=== PATIENT | male | born 1950 | race Caucasian/White ===

== ENCOUNTER → 2018-02-11 10:49 | Outpatient (CLI) | payer MEDICARE, OTHER, SELFPAY ==
--- NOTE | 2018-02-11 11:10 | NM_ITS ---
History and Indications: Coronary artery disease, previous [place], hypertension,, family history, fatigue Procedure: Patient received a 0.4 mg of intravenous Lexiscan, resting heart rate was 60 beats prominent, resting blood pressure 162/92, with Lexiscan maximum heart achieved was 99 bpm which is less than 85% of the maximum predicted heart rate and a blood pressure was 149/77. With Lexiscan complaint of chest pressure. Electrocardiogram: Resting electrocardiogram showed sinus rhythm nonspecific ST-T changes, with Lexiscan there is less than 1.[address] segment depression noted from the baseline EKG. The EKG portion of the Lexiscan Myoview is nondiagnostic Cardiac stress and resting SPECT images: Cardiac stress and resting SPECT images were obtained using technetium 99 Myoview 31.0 mCi at stress and 10.6 mCi at rest. Gated SPECT further analysis of segmental wall motion and calculation of the ejection fraction also done. Cardiac stress and rest images show a partial reversible defect involving the anteroapical, apex, and anteroseptal wall consistent with ischemia and scar in those areas. Computer derived ejection fraction is 42%, there is moderate hypokinesis involving the anteroapical, apex, and anteroseptal wall. Right ventricle is normal size and contractility. Conclusion: 1. The EKG portion of the Lexiscan Myoview is nondiagnostic. 2. Scintigraphic evidence of partial reversible defect involving the anteroapical, apex, and anteroseptal wall consistent with ischemia and scar. Computer derived ejection fraction is 42% with segmental wall motion abnormality described above, right ventricle is normal size and contractility. 3. Abnormal Lexiscan Myoview study.
[2018-02-11 11:49] LABS: Alanine Aminotransferase 33 U/L (12-78); Albumin Level 3.8 gm/dL (3.4-5.0); Alkaline Phosphatase 84 U/L (46-116); Aspartate Amino Transferase 16 U/L (15-37); Bilirubin,Direct 0.1 mg/dL (0.0-0.2); Bilirubin,Indirect 0.3 mg/dL (0.0-0.9); Bilirubin,Total 0.4 mg/dL (0.2-1.0); Chol/HDL Ratio 3.1 (1-3.5); Cholesterol 95 mg/dL (140-200); HDL Cholesterol 31 mg/dL (27-67); LDL Cholesterol 23 mg/dL (0-130); Total Protein,Serum 6.9 gm/dL (6.4-8.2); Triglycerides 203 mg/dL (30-200); VLDL Cholesterol 41 mg/dL (0-40)
--- NOTE | 2018-02-11 12:14 | HMH.ITSHM ---
ATORVASTATIN OMEPRAZOLE LISINOPRIL ASA MECLIZINE BISOPROLOL VITAMINS
== END ==
PROVIDERS: Nurse Practitioner Family; Family Provider Family Medicine; PCP Family Medicine; Visit Provider Internal Medicine
DX: E78.4 Other hyperlipidemia (principal); R06.02 Shortness of breath
CPT/HCPCS: 36415; 78452; 80061; 80076; 93017; A9502; J2785

== ENCOUNTER → 2018-02-20 14:41 | Outpatient (CLI) | payer MEDICARE, OTHER, SELFPAY ==
--- NOTE | 2018-02-20 14:42 | CT_ITS ---
CT head/brain wo con HISTORY: Right-sided weakness ITS.REASON: posterier circulation tia ORDERING PHYSICIAN: Anita Kong MD PATIENT AGE: 67 years COMPARISON: none TECHNIQUE: Axial images obtained without contrast. Brain and bone windows reviewed. All CT scans at the facility use one or more dose reduction, viz: automated exposure control, ma/kV adjustment per patient size (including targeted exams where dose is matched to indication, i.e. head), or iterative reconstruction technique. FINDINGS: No midline shift, mass effect, intracranial hemorrhage, hydrocephalus, or extra-axial fluid collection is evident. There are mild periventricular ischemic gliotic changes. A small area of decreased attenuation is present in the subcortical region in the right frontal lobe measuring 4 mm probably related to partial averaging artifact from the underlying sulcus versus a small area of infarction. The posterior fossa have an unremarkable appearance. No sinus air-fluid level or mastoid effusion. IMPRESSION: No acute finding. Mild periventricular ischemic gliotic change
== END ==
PROVIDERS: Family Provider Family Medicine; PCP Family Medicine; Visit Provider Specialist
DX: G45.8 Other transient cerebral ischemic attacks and related syndromes (principal); G47.33 Obstructive sleep apnea (adult) (pediatric); I10 Essential (primary) hypertension; I63.9 Cerebral infarction, unspecified; R06.83 Snoring
CPT/HCPCS: 70450

== ENCOUNTER 2018-03-04 12:42 | Outpatient (RCR) | payer MEDICARE, OTHER, SELFPAY | END 2018-05-01 10:18 | disposition home or self-care (01) | LOC: PT 12:42 | PROVIDERS: Family Provider Family Medicine; PCP Family Medicine; Visit Provider Internal Medicine | DX: Z95.5 Presence of coronary angioplasty implant and graft (principal) | CPT/HCPCS: 93798 ==

== ENCOUNTER → 2018-04-10 09:56 | Outpatient (CLI) | payer MEDICARE, OTHER, SELFPAY ==
--- NOTE | 2018-04-10 10:00 | CA_ITS ---
PROCEDURE: 2-D M-mode and color Doppler study INDICATIONS FOR THE TEST: Chest pain COPD Heart Murmur Tobacco Smoking Palpitations Fatigue+ Syncope Edema Hypertension+Diabetes Mellitus Rheumatic Fever SOB+SUTTON Obesity Hyperlipidemia+ Family History HD Additional History CVA, PACER, ABN EKG PATIENT INFORMATION HEIGHT: 67 WEIGHT:217 GENDER: Male B/P:157/83 2-D/M-MODE INTERPRETATION: 2-D MEASUREMENTS OBSERVED VALUES IN CMS Right Ventricular Dimension (RVDd) 2.0 Interventricular Septum (Thickness)(IVsd) 1.2 Left Ventricular Internal Dimensions(LVIDd) 5.0 Left Ventricular Posterior Wall (Thickness)(LVPWd) 1.0 Aortic Root 3.2 Aortic Cusp Separation 2.1 Left Atrial Dimensions (LAD) 3.7 2D 1. Left atrium is mildly enlarged, left ventricle is normal size, mild concentric left ventricular hypertrophy, visually estimated ejection fraction approximately 50%, there is abnormal septal motion. Endocardial surface of poorly visualized. 2. Mildly enlarged right atrium and right ventricle, contractility of the right ventricle is normal. There is a pacemaker lead seen in the right atrium and right ventricle. 3. The aortic valve is minimally thickened and fibrosed. 4. The mitral and tricuspid valve leaflets are minimally thickened. 5. The pulmonic valve is poorly visualized. 6. No significant pericardial effusion noted. DOPPLER INTERROGATION: Doppler interrogation of the aortic, mitral and tricuspid valvular presence of mild aortic, mild mitral and tricuspid regurgitation, tricuspid regurgitation jet velocity is inadequate for calculation of the right ventricular systolic pressure, grade 1 diastolic dysfunction seen with tissue Doppler evidence of raised left atrial pressure. CONCLUSION: 1. Biatrial enlargement, normal left ventricular size, mild concentric left ventricular hypertrophy, visually estimated ejection fraction approximately 50%, there is abnormal septal motion, endocardial subsequent poorly visualized, grade 1 diastolic dysfunction seen with tissue Doppler evidence of raised left atrial pressure. 2. Mild aortic, mild mitral and tricuspid regurgitation 3. No significant pericardial effusion noted.
[2018-04-10 11:59] LABS: Anion Gap 11.1 mEq/L (5-15); Blood Urea Nitrogen 15 mg/dL (7-18); Calcium 8.9 mg/dL (8.5-10.1); Carbon Dioxide 31 mmol/L (21.0-32.0); Chloride 104 mmol/L (98-107); Creatinine,Serum 1.03 mg/dL (0.70-1.30); Estimated Glomerular Filt Rate 72 ml/min (>60); GFR (African American) 88 ML/MIN (>60); Glucose 108 mg/dL (74-106); Potassium 5.1 mmoL/L (3.5-5.1); Sodium 141 mmol/L (136-145)
== END ==
PROVIDERS: Internal Medicine Cardiovascular Disease; PCP Family Medicine; Visit Provider Internal Medicine
DX: E78.49 Other hyperlipidemia; I10 Essential (primary) hypertension; I25.10 Atherosclerotic heart disease of native coronary artery without angina pectoris; R06.02 Shortness of breath; R94.31 Abnormal electrocardiogram [ECG] [EKG]
CPT/HCPCS: 36415; 80048; 93306

== ENCOUNTER → 2018-04-24 10:39 | Outpatient (CLI) | payer MEDICARE, OTHER, SELFPAY ==
--- NOTE | 2018-04-24 10:42 | US_ITS ---
US Arterial Ankle Brachial Ind History: ITS.REASON: claudication, bilateral wrist pain, weak pulses on the left ORDERING PHYSICIAN: Ran Murrieta MD PATIENT AGE: 67 years TECHNIQUE: Segmental pressures obtained of both right and left leg. These are compared to brachial blood pressure to yield index at each level sampled including summary RACHEL. The data sheets from the procedure are available in PACS FINDINGS Rest study only performed today No prior studies available for comparison. Blood pressures reported are in millimeters mercury. RIGHT LEG RACHEL = 1.2. RIGHT LEG TBI=0.7 Brachial BP: 141 Thigh BP: 153 Calf BP: 160 Ankle PT: 175 Ankle DP : 161 Digit =99 LEFT LEG RACHEL = 1.2 LEFT LEG TBI= 0.7 Brachial BPD: 136 Thigh BP: 179 Calf BP: 184 Ankle PT:163 Ankle DP: 164 Digit = 100 Pulses and waveforms: Normal IMPRESSION: The ABIs as reported above are within normal limits. Waveforms and pulses are also unremarkable.
== END ==
PROVIDERS: PCP Family Medicine; Visit Provider Internal Medicine Cardiovascular Disease
DX: I70.213 Atherosclerosis of native arteries of extremities with intermittent claudication, bilateral legs (principal)
CPT/HCPCS: 93922

== ENCOUNTER → 2018-05-16 13:57 | Outpatient (CLI) | payer MEDICARE, OTHER, SELFPAY ==
[2018-05-16 16:37] LABS: Blood Urea Nitrogen 14 mg/dL (7-18); Creatinine,Serum 0.96 mg/dL (0.70-1.30); Estimated Glomerular Filt Rate 79 ml/min (>60); GFR (African American) 95 ML/MIN (>60)
== END ==
PROVIDERS: Visit Provider Internal Medicine Cardiovascular Disease
DX: I25.10 Atherosclerotic heart disease of native coronary artery without angina pectoris (principal); R42 Dizziness and giddiness; R94.31 Abnormal electrocardiogram [ECG] [EKG]
CPT/HCPCS: 36415; 82565; 84520

== ENCOUNTER → 2018-05-28 13:13 | Outpatient (CLI) | payer MEDICARE, OTHER, SELFPAY ==
--- NOTE | 2018-05-28 13:21 | CT_ITS ---
CT angio LE BI INDICATION: Left lower extremity claudication ITS.REASON: claudication ORDERING PHYSICIAN: Ran Murrieta MD PATIENT AGE: 67 years COMPARISON: None TECHNIQUE: Axial images are obtained following the intravenous administration of 120 mL of Isovue-370. Contrast. Sagittal and coronal reformatted images are reviewed as well. All CT scans at the facility use one or more dose reduction, viz: automated exposure control, ma/kV adjustment per patient size (including targeted exams where dose is matched to indication, i.e. head), or iterative reconstruction technique. FINDINGS: Angiographic findings: The abdominal aorta has an unremarkable appearance. Small amount of plaque is present at the ostium of the celiac artery without significant stenosis. Small amount of calcific plaque is also present at the ostium of the right renal artery eccentric in nature. The left renal artery and superior mesenteric artery and inferior mesenteric artery have an unremarkable appearance. No iliac stenosis evident. Right lower extremity: No significant stenosis. There is 3 vessel runoff to the right foot Left lower extremity: No stenotic lesions evident. There is three-vessel runoff to the left foot. Nonangiographic findings: Small hiatal hernia. There is diverticulosis of the descending and sigmoid colon with no evidence of diverticulitis. Small left hydrocele noted. Corrugated appearance is noted involving the T12 vertebral body consistent with hemangioma. IMPRESSION: 1. No significant stenotic lesions evident within the aorta, iliac arteries, or lower extremity runoff vessels. 2. Eccentric calcific plaque is present at the ostium of the celiac artery and right renal artery without significant stenosis 3. Incidental note made of a small hiatal hernia and colonic diverticulosis
[2018-05-28 14:20] LABS: Blood Urea Nitrogen 16 mg/dL (7-18); Estimated Glomerular Filt Rate 75 ml/min (>60); GFR (African American) 91 ML/MIN (>60)
== END ==
PROVIDERS: Visit Provider Internal Medicine Cardiovascular Disease
DX: E78.5 Hyperlipidemia, unspecified (principal); I10 Essential (primary) hypertension; I25.10 Atherosclerotic heart disease of native coronary artery without angina pectoris; I73.9 Peripheral vascular disease, unspecified; R20.0 Anesthesia of skin; Z95.0 Presence of cardiac pacemaker
CPT/HCPCS: 36415; 73701; 82565; 84520; Q9967

== ENCOUNTER → 2020-02-11 09:44 | Outpatient (CLI) | payer MEDICARE, BC, SELFPAY ==
--- NOTE | 2020-02-11 | CA_ITS ---
APPROVED REPORT EXAM: Comprehensive 2D, Doppler, and color-flow Echocardiogram Imaging Administrator: Alecia Trotter, RT(R) Ht: 5 ft 7 in Wt: 216lbs BSA: 2.09 BP: 140/72 mmHg Indications: smoker, HTN,SOB, hyperlipidemia, CAD, abn EKG, PAD, pacer, hx CVA 2D Dimensions LVOT 2.07 cm (M/F) 1.5-2.5 M-Mode Dimensions RVDd 2.67 cm (0.9-2.6) LVDd 5.21 cm (3.5-5.7) LVDs 3.73 cm (3.5-5.7) IVSd 1.10 cm (0.6-1.1) PWd 0.89 cm (0.6-1.1) EF (Teich) 54.40% FS 28.40% EDV (Teich) 130.10 mL ESV (Teich) 59.30 mL LV Diastology E/A Ratio 0.55 Mitral Valve MV A Velocity 83.00 (40-130 cm/s) Left Ventricle Left atrium is mildly enlarged, left ventricle is normal size, mild concentric left ventricular hypertrophy visually estimated ejection fraction 45% there is abnormal septal motion, endocardial surfaces are poorly visualized. Grade 1 diastolic dysfunction seen without tissue Doppler evidence of raise left atrial pressure. Right Ventricle Right atrium and right ventricle are normal size and contractility, there is a pacemaker lead seen right atrium and right ventricle. Aortic Valve Aortic valve is thickened and calcified leaflet continue to display good mobility, there is no aortic stenosis, there is mild aortic insufficiency. Mitral Valve Mitral valve is minimally thickened, there is no mitral stenosis, there is mild mitral regurgitation. Tricuspid Valve Tricuspid valve grossly normal, there is mild tricuspid regurgitation, tricuspid regurgitation jet velocity is inadequate for calculation of the right ventricular systolic pressure. Pulmonic Valve Pulmonic valve is poorly visualized. Great Vessels Aortic root is normal size. Pericardium No significant pericardial effusion noted. Conclusion 1. Mildly enlarged left atrium, normal left ventricular size, mild concentric left ventricular hypertrophy, visually estimated ejection fraction 45% with abnormal septal motion. Grade 1 diastolic dysfunction seen without tissue Doppler evidence of raise left atrial pressure. 2. Thickened and calcified aortic valve without aortic stenosis, there is mild aortic insufficiency. 3. Mild mitral and tricuspid regurgitation. 4. No significant pericardial effusion noted. Electronically signed by : Ran Murrieta, 02/12/2020 13:38:06
--- NOTE | 2020-02-11 | CA_ITS ---
APPROVED REPORT Edge Burnisher: Sarai Roberson RVT Laterality: Bilateral Study Quality: Excellent Indications: Carotid stenosis Risk Factors Hypertension: TIA/CVA History Hyperlipidemia PAD Smoking Doppler Spectral Velocity Analysis ECA (R) 64.70/7.60 cm/s ECA (L) 71.90/10.80 cm/s dICA (R) 134.30/42.20 cm/s dICA (L) 75.00/27.10 cm/s Jorge (R) 81.00/31.70 cm/s Jorge (L) 67.90/22.30 cm/s pICA (R) 49.70/17.40 cm/s pICA (L) 63.30/15.40 cm/s dCCA (R) 40.90/9.90 cm/s dCCA (L) 52.20/15.90 cm/s pCCA (R) 58.20/13.70 cm/s pCCA (L) 72.90/12.20 cm/s Vert (R) 28.30/5.10 cm/s Vert (L) 36.40/15.80 cm/s ICA/CCA 3.28 ICA/CCA 1.44 Findings Study suggests no evidence of stenosis of the right internal cartoid artery. Study suggests no evidence of stenosis of the left internal cartoid artery. Antegrade flow seen bilateral vertebral arteries. Conclusion Study suggests no evidence of stenosis of the right internal cartoid artery. Study suggests no evidence of stenosis of the left internal cartoid artery. Antegrade flow seen bilateral vertebral arteries. Electronically signed by : Kojo Holliday MD 02/11/2020 15:57:10
== END ==
PROVIDERS: PCP Family Medicine; Visit Provider Nurse Practitioner Family
DX: R09.89 Other specified symptoms and signs involving the circulatory and respiratory systems (principal); I65.23 Occlusion and stenosis of bilateral carotid arteries; R06.00 Dyspnea, unspecified; R94.31 Abnormal electrocardiogram [ECG] [EKG]; E78.5 Hyperlipidemia, unspecified
CPT/HCPCS: 93306; 93880

== ENCOUNTER 2020-04-25 11:19 | Emergency (ER) | payer MEDICARE, BC, SELFPAY ==
[2020-04-25 11:50] VITALS: BP 175/83; PULSE 62; RESP 14; TEMP 36.8; O2SAT 99; BMI 31.3
--- NOTE | 2020-04-25 12:26 | HMH.EDUTC ---
[facility] [place] Clinical Impression: Exposure to COVID-19 virus Disposition: Home, Self-Care Condition on Discharge: Good Instructions: Preventing the Spread of Coronavirus Discharge Instructions Additional Instructions: follow up with pcp if symptoms develop call pcp if worsen return or be seen in ed self isolate call for test results Referrals: Dane Pascual MD [Primary Care Provider] - Time of Disposition: 12:29 Medical Decision Making - Justice Inquiry Pt receiving controlled substance: No Vital Signs: 04/25/20 11:50 Temperature 98.2 F Temperature Source Oral Pulse Rate [Left Brachial] 62 Respiratory Rate 14 Blood Pressure [Left Arm] 175/83 H Blood Pressure Mean [Left Arm] 113 Blood Pressure Source [Left Arm] Automatic Cuff Blood Pressure Position [Left Arm] Sitting 02 Sat by Pulse Oximetry 99 Oxygen Delivery Method Room Air Orders (Tests/Meds): ORDERS Category Date Time Status Covid-19 Nasal PCR ([facility]) Routine Lab 04/25/20 12:08 Ordered [facility] [place] HPI - General Chief complaint: Urgent [facility] Stated complaint: covid test Time Seen by Provider: 04/25/20 12:26 Mode of Arrival: Ambulatory Source of Information: Patient Limitations: No Limitations Description of Symptoms (Recalled from Triage Doc. by RN): PATIENT REQUESTING COVID TEST D/T EXPOSURE; DENIES SYMPTOMS HEENT Symptoms (Recalled from RN notes): No Resp Symptoms (Recalled from RN notes): No Skin Symptoms (Recalled from RN notes): No MS Symptoms (Recalled from RN notes): No Functional Status (Recalled from RN notes): WNL - History of Present Illness Provider Complaint: 69 yr old female presents for covid testing. pt states no symptoms but was exposed. - Related Data Home Medications Medication Instructions Recorded Confirmed meclizine 25 mg tablet 25 mg PO TID PRN tab 02/04/18 01/19/20 omeprazole 40 mg capsule,delayed 40 mg PO DAILY 02/04/18 01/19/20 release bfrmvjjesyco-xarfxxom-wgjafl tablet 1 tab PO DAILY 02/28/18 01/19/20 Previous Rx's Medication Instructions Recorded aspirin 81 mg tablet,delayed 81 mg PO DAILY #90 tab 04/24/19 release atorvastatin 80 mg tablet 80 mg PO HS #90 tab 04/24/19 bisoprolol fumarate 10 mg tablet 10 mg PO DAILY #90 tab 04/24/19 clopidogrel 75 mg tablet 75 mg PO DAILY #90 tab 04/24/19 hydrochlorothiazide 12.5 mg tablet 12.5 mg PO DAILY #90 tab 04/24/19 losartan 50 mg tablet 50 mg PO DAILY #90 tab 04/24/19 Allergies Allergy/AdvReac Type Severity Reaction Status Date / Time No Known Allergies Allergy Verified 01/19/20 11:48 - Worker's Comp Is this a Worker's Comp case?: No [facility] History - Hepatitis A Screen Drug use history?: No High risk sexual behaviors?: No History of sexually transmitted infection?: No Currently employed?: No Childcare worker?: No Do you have indoor plumbing?: Yes Do you have electricity?: Yes Attestation statement:: This patient has been screened for Hepatitis A risk factors. I have reviewed the patient's past medical history: Yes Medical History: Reports:: Cerebrovascular Accident, Hyperlipidemia, Hypertension, Internal Pacemaker Other Surgeries: Yes: Angiogram (02/21/18 2 stents), Appendectomy, Colonoscopy, Hernia Repair, Pacemaker Amputation: No Fractures: No - Social History Smoking Status: Former smoker Tobacco Type: cigarettes Alcohol Intake: never Alcohol Intake Frequency:: a few times a week Substance Use Type: denies use Occupational Status: other Housing: house Household Members: significant other Family Hx:: Heart Attack, Diabetes, Cancer ROS Obtained: Yes Systems reviewed as appropriate & no additional complaints - Constitutional Constitutional: Reports system reviewed and no additional complaints, except as docu, Denies fever(s) - Eyes Eyes: Reports system reviewed and no additional complaints, except as docu, Denies loss of peripheral vision - ENT Ears, Nose, Mouth, and Throat: Reports system re
[2020-04-25 12:30] VITALS: BP 175/83; PULSE 62; RESP 14; TEMP 36.8; O2SAT 99
--- NOTE | 2020-04-25 17:41 | PC.NURSE ---
patient notified of negative covid test results
== END 2020-04-25 12:34 | disposition home or self-care (01) ==
PROVIDERS: Emergency Provider Nurse Practitioner Family; PCP Family Medicine
DX: Z20.828 Contact with and (suspected) exposure to other viral communicable diseases (principal); E78.5 Hyperlipidemia, unspecified; I10 Essential (primary) hypertension; Z95.0 Presence of cardiac pacemaker; Z87.891 Personal history of nicotine dependence
CPT/HCPCS: G0463; 99201; U0003

== ENCOUNTER → 2020-07-08 10:36 | Outpatient (CLI) | payer MEDICARE, BC, SELFPAY ==
--- NOTE | 2020-07-08 10:47 | XR_ITS ---
PROCEDURE: XR KNEE RT 3V CLINICAL INDICATION: UNILATERAL PRIMARY OSTEOARTHRITIS RT KNEE Knee pain COMPARISON: No exams were available for comparison FINDINGS: There are mild osteoarthritic changes of the medial compartment and patellofemoral joint. No fracture or dislocation. Soft tissue calcification is present along the proximal and medial aspect of the proximal tibia unknown etiology. Other findings:None. IMPRESSION: Mild osteoarthritis of the right knee Dictated by: Kojo Holliday MD 07/08/2020 15:40 Kojo Holliday MD in [place] 07/08/2020 15:40
--- NOTE | 2020-07-08 10:47 | XR_ITS ---
PROCEDURE: XR KNEE LT 3V CLINICAL INDICATION: UNILATERAL PRIMARY OSTEOARTHRITIS LT KNEE COMPARISON: No exams were available for comparison FINDINGS: No fracture or dislocation. No lytic or blastic change. There is normal mineralization. There are mild osteoarthritic changes of medial compartment and patellofemoral joint. Other findings:None. IMPRESSION: Mild osteoarthritis of the left knee Dictated by: Kojo Holliday MD 07/08/2020 15:40 Kojo Holliday MD in [place] 07/08/2020 15:40
== END ==
PROVIDERS: PCP Family Medicine; Visit Provider Family Medicine
DX: M17.12 Unilateral primary osteoarthritis, left knee (principal); M17.11 Unilateral primary osteoarthritis, right knee
CPT/HCPCS: 73562

== ENCOUNTER → 2021-01-24 12:26 | Outpatient (CLI) | payer MEDICARE, BC, SELFPAY ==
--- NOTE | 2021-01-24 12:28 | CA_ITS ---
APPROVED REPORT EXAM: Comprehensive 2D, Doppler, and color-flow Echocardiogram New Car Salesperson: Anu Ott CRT Ht: 5 ft 7 in Wt: 212lbs BSA: 2.07 BP: 146/69 mmHg Indications: Hyperlipidemia, Hypertension/HDD, old mi, cm, smoker 2D Dimensions LVOT 2.00 cm (M/F) 1.5-2.5 LA Volume 33.70 mL LA Volume Index 16.30 mL/m2 (M/F) 16-34 M-Mode Dimensions RVDd 2.97 cm (0.9-2.6) LA Diam 4.02 cm (1.9-4.0) LVDd 5.64 cm (3.5-5.7) Ao Diam 3.93 cm (2.0-3.7) LVDs 4.15 cm (3.5-5.7) IVSd 1.14 cm (0.6-1.1) PWd 0.99 cm (0.6-1.1) EF (Teich) 51.10% FS 26.40% EDV (Teich) 156.20 mL TAPSE 2.64 (<1.7) ESV (Teich) 76.40 mL LV Diastology E Decel Time 347.00 (160-240 msec) E/A Ratio 0.54 MED E' 4.70 (< 7 cm/sec) MED A' 8.60 cm/s E'/MED E' Ratio 7.57 (>14) LAT E' 4.20 (<10 cm/sec) LAT A' 9.00 cm/s E/LAT E' Ratio 8.48 (>14) Aortic Valve AI PHT 593.00 ms AO Peak GR. 5.00 mmHg Mitral Valve MV A Velocity 66.00 (40-130 cm/s) E/A Ratio 0.54 MV Decel. Time 347.00 (160-240 ms) Pulmonary Valve PV Peak Velocity 120.00 (50-150 cm/s) Tricuspid Valve TR P. Velocity 252.00 cm/s RAP Estimate 10.00 mmHg RVSP 35.40 mmHg Left Ventricle Technically difficult study because of the patient factors and poor acoustic windows. Left atrium is mildly enlarged, left ventricle is normal size, mild concentric left ventricular hypertrophy, visually estimated ejection fraction 50%, there is moderate inferior basal wall hypokinesis, grade 1 diastolic dysfunction seen without tissue Doppler evidence of raise left atrial pressure. Right Ventricle Right atrium and right ventricle are normal size and contractility. Aortic Valve Aortic valve is minimally thickened and fibrosed, there is no aortic stenosis, there is mild aortic insufficiency. Mitral Valve Mitral valve leaflets are minimally thickened, there is mild mitral regurgitation. Tricuspid Valve Tricuspid valve grossly normal, there is mild tricuspid regurgitation, calculated right ventricular systolic pressure is 35 mmHg. Pulmonic Valve Pulmonic valve is poorly visualized. Great Vessels Aortic root is normal size. Pericardium No significant pericardial effusion noted. Conclusion 1. Technically difficult study because of the patient factors and poor acoustic windows. Mildly enlarged left atrium, normal left ventricular size, mild concentric left ventricular hypertrophy, visually estimated ejection fraction 50% with segmental wall motion abnormality described above, grade 1 diastolic dysfunction seen without tissue Doppler evidence of raise left atrial pressure. 2. Mild aortic, mild mitral and tricuspid regurgitation, calculated right ventricular systolic pressure is 35 mmHg. 3. No significant pericardial effusion noted. Electronically signed by : Ran Murrieta MD 01/24/2021 21:41:21
== END ==
PROVIDERS: PCP Family Medicine; Visit Provider Nurse Practitioner Family
DX: E78.5 Hyperlipidemia, unspecified (principal); F17.200 Nicotine dependence, unspecified, uncomplicated; I10 Essential (primary) hypertension; I25.10 Atherosclerotic heart disease of native coronary artery without angina pectoris; I63.9 Cerebral infarction, unspecified; I73.9 Peripheral vascular disease, unspecified; R06.00 Dyspnea, unspecified; R94.31 Abnormal electrocardiogram [ECG] [EKG]; Z95.0 Presence of cardiac pacemaker
CPT/HCPCS: 93306

== ENCOUNTER → 2021-07-20 09:11 | Outpatient (CLI) | payer MEDICARE, BC, SELFPAY ==
[2021-07-20 10:43] LABS: Alanine Aminotransferase 36 U/L (12-78); Albumin Level 4.6 g/dl (3.5-5.0); Alkaline Phosphatase 90 U/L (38-126); Aspartate Amino Transferase 40 U/L (17-59); Bilirubin,Direct 0.2 mg/dl (0.0-0.4); Bilirubin,Indirect 0.4 mg/dL (0.0-0.9); Bilirubin,Total 0.6 mg/dl (0.2-1.3); Bilirubin,Unconjugated 0.4 mg/dL (0.0-1.1); Cholesterol 147 mg/dl (140-200); Total Protein,Serum 7.4 g/dl (6.3-8.2)
[2021-07-20 10:44] LABS: Chol/HDL Ratio 5.1 (1-3.5); HDL Cholesterol 29 mg/dl (40-60); Triglycerides 450 mg/dl (30-150)
[2021-07-20 10:55] LABS: Direct LDL Cholesterol 33.57 mg/dL (100-129)
== END ==
PROVIDERS: PCP Family Medicine; Visit Provider Nurse Practitioner Family
DX: E78.2 Mixed hyperlipidemia (principal); F17.200 Nicotine dependence, unspecified, uncomplicated; I10 Essential (primary) hypertension; I25.10 Atherosclerotic heart disease of native coronary artery without angina pectoris; I73.9 Peripheral vascular disease, unspecified; Z95.0 Presence of cardiac pacemaker
CPT/HCPCS: 36415; 80061; 80076

== ENCOUNTER → 2022-11-02 14:12 | Outpatient (CLI) | payer MEDICARE, BC, SELFPAY | PROVIDERS: PCP Family Medicine; Visit Provider Nurse Practitioner | DX: R06.09 Other forms of dyspnea; I42.8 Other cardiomyopathies; I25.10 Atherosclerotic heart disease of native coronary artery without angina pectoris; I10 Essential (primary) hypertension; E78.2 Mixed hyperlipidemia; I73.9 Peripheral vascular disease, unspecified; R94.31 Abnormal electrocardiogram [ECG] [EKG]; Z95.0 Presence of cardiac pacemaker; F17.200 Nicotine dependence, unspecified, uncomplicated | CPT/HCPCS: 93306 ==

== ENCOUNTER 2023-07-19 23:00 | Outpatient (CLI) | payer MEDICARE, SELFPAY ==
[2023-07-19 19:21] LABS: Basophils % 0.4 % (0.1-2.0); Eosinophils # 0.3 K/mm3 (0.0-0.4); Eosinophils % 4.8 % (0.1-12.0); Hematocrit 40.5 % (42.0-52.0); Hemoglobin 13.8 g/dL (14.1-18.0); Lymphocytes # 1.9 K/mm3 (0.7-4.5); Lymphocytes % 36.2 % (10-50); Mean Corpuscular HGB Conc 34.1 g/dL (31.8-35.4); Mean Corpuscular Hemoglobin 31.2 pg (27.0-31.2); Mean Corpuscular Volume 91.5 fl (80-94); Mean Platelet Volume 9.7 fl (7.4-10.4); Monocytes # 0.3 K/mm3 (0.1-1.0); Monocytes % 5.8 % (1.7-9.3); Neutrophils # 2.7 K/mm3 (1.8-7.8); Neutrophils % 52.8 % (37.0-80.0); Platelet Count 200 K/mm3 (142-424); Red Blood Count 4.43 M/mm3 (4.60-6.20); Red Cell Distribution Width 13.6 % (11.5-17.5); White Blood Count 5.2 K/mm3 (4.8-10.8)
[2023-07-19 19:46] LABS: Alanine Aminotransferase 28 U/L (12-78); Albumin Level 4.2 g/dl (3.5-5.0); Albumin/Globulin Ratio 1.4 (1.1-1.8); Alkaline Phosphatase 101 U/L (38-126); Aspartate Amino Transferase 29 U/L (17-59); Bilirubin,Total 0.5 mg/dl (0.2-1.3); Blood Urea Nitrogen 15 mg/dl (9-20); Calcium 9.1 mg/dl (8.4-10.2); Carbon Dioxide 27 mmol/L (22.0-30.0); Chloride 104 mmol/L (98-107); Chol/HDL Ratio 6.2 (1-3.5); Cholesterol 156 mg/dl (140-200); Estimated Glomerular Filt Rate 66 ml/min (>60); GFR (African American) 80 ML/MIN (>60); Glucose 145 mg/dl (74-100); HDL Cholesterol 25 mg/dl (40-60); Sodium 138 mmol/L (136-145); Total Protein,Serum 7.2 g/dl (6.3-8.2)
[2023-07-19 19:50] LABS: Triglycerides 508 mg/dl (30-150)
[2023-07-19 19:56] LABS: Direct LDL Cholesterol 47.46 mg/dL (100-129)
[2023-07-19 20:00] LABS: Hemoglobin A1C 8.2 % (4.0-6.0)
[2023-07-19 20:16] LABS: Prostate Specific Ag Screen 0.5 ng/ml (0.0-4.0); Thyroid Stimulating Hormone 0.75 uIU/mL (0.465-4.68)
== END 2023-07-19 23:59 ==
PROVIDERS: PCP Family Medicine; Visit Provider Family Medicine
DX: E11.9 Type 2 diabetes mellitus without complications (principal); Z12.5 Encounter for screening for malignant neoplasm of prostate; E78.9 Disorder of lipoprotein metabolism, unspecified; R53.83 Other fatigue; I10 Essential (primary) hypertension; Z79.84 Long term (current) use of oral hypoglycemic drugs
CPT/HCPCS: 80053; 80061; 83036; 84443; 85025; G0103

== ENCOUNTER 2024-10-17 09:55 | Outpatient (CLI) | payer MEDICARE, SELFPAY ==
[2024-10-17 18:20] LABS: Basophils % 0.2 % (0.1-2.0); Eosinophils # 0.2 Kmm3 (0.0-0.4); Eosinophils % 3.5 % (0.1-12.0); Hematocrit 38.9 % (42.0-52.0); Hemoglobin 12.9 g/dL (14.1-18.0); Lymphocytes # 1.8 K/mm3 (0.7-4.5); Mean Corpuscular HGB Conc 33.2 g/dL (31.8-35.4); Mean Corpuscular Hemoglobin 30.1 pg (27.0-31.2); Mean Corpuscular Volume 90.9 fl (80-94); Mean Platelet Volume 11.6 fl (7.4-10.4); Monocytes # 0.5 K/mm3 (0.1-1.0); Monocytes % 8.6 % (1.7-9.3); Neutrophils # 3.6 K/mm3 (1.8-7.8); Neutrophils % 58.5 % (37.0-80.0); Nucleated Red Blood Cells # 0 10^3/uL; Nucleated Red Blood Cells % 0 %; Platelet Count 208 K/mm3 (142-424); Red Blood Count 4.28 M/mm3 (4.60-6.20); Red Cell Distribution Width 13.5 % (11.5-17.5); White Blood Count 6.1 K/mm3 (4.8-10.8)
[2024-10-17 19:25] LABS: Albumin Level 3.8 g/dl (3.5-5.0); Chloride 108 mmol/L (98-107); Potassium 4.5 mmoL/L (3.5-5.1); Sodium 138 mmol/L (136-145)
[2024-10-17 19:27] LABS: 25-OH Vitamin D, Total 39.8 ng/mL (30-100)
[2024-10-17 19:28] LABS: Alanine Aminotransferase 29 U/L (12-78); Albumin/Globulin Ratio 1.6 (1.1-1.8); Alkaline Phosphatase 82 U/L (38-126); Anion Gap 11.5 mEq/L (5-15); Aspartate Amino Transferase 28 U/L (17-59); Bilirubin,Total 0.5 mg/dl (0.2-1.3); Calcium 8.5 mg/dl (8.4-10.2); Carbon Dioxide 23 mmol/L (22.0-30.0); Chol/HDL Ratio 3.5 (1-3.5); Cholesterol 94 mg/dl (140-200); Globulin 2.4 g/dL (1.3-3.2); Glucose 126 mg/dl (74-100); HDL Cholesterol 27 mg/dl (40-60); Total Protein,Serum 6.2 g/dl (6.3-8.2); Triglycerides 236 mg/dl (30-150); VLDL Cholesterol 47 mg/dL (0-40)
[2024-10-17 19:37] LABS: Blood Urea Nitrogen 14 mg/dl (9-20); Estimated Glomerular Filt Rate 95 ml/min (>60); GFR (African American) 115 ML/MIN (>60)
[2024-10-17 19:47] LABS: T4 (Thyroxine) 8.1 ug/dl (5.53-11.0)
[2024-10-17 19:51] LABS: Direct LDL Cholesterol < 30.00 mg/dL (100-129)
[2024-10-17 20:01] LABS: Thyroid Stimulating Hormone 0.71 uIU/mL (0.465-4.68)
[2024-10-17 20:05] LABS: Hemoglobin A1C 7.9 % (4.0-6.0)
[2024-10-17 20:10] LABS: HIV Combo NEGATIVE (Negative)
[2024-10-17 20:13] LABS: Hepatitis C Ab Qual. W/ RFX NEGATIVE (Negative)
== END 2024-10-17 23:59 | disposition home or self-care (01) ==
LOC: LAB.DROPOF 10-20 11:26
PROVIDERS: PCP Nurse Practitioner Family; Visit Provider Nurse Practitioner Family
DX: E78.5 Hyperlipidemia, unspecified (principal); I10 Essential (primary) hypertension; Z87.891 Personal history of nicotine dependence; Z68.34 Body mass index [BMI] 34.0-34.9, adult; E66.9 Obesity, unspecified
CPT/HCPCS: 80053; 80061; 82306; 83036; 84436; 84443; 85025; 86803; 87389

== ENCOUNTER 2024-12-18 12:10 | Outpatient (CLI) | payer MEDICARE, SELFPAY ==
--- OUTSIDE RECORDS SUMMARY | 2024-11-04 14:15 | XMS_ITS | Encounter Summary ---
Author Organization [place] [address] Care Team Providers Care Breast Buffer Name Role Phone Unavailable Primary Care Provider Unavailabl e Reason for Referral * Biopsy Procedure (Routine) - Closed Specialty Diagnoses / Procedures Referred By Anastacio palma Referred To Contact Diagnoses AK (actinic keratosis) Procedures TN DESTRUCTION PREMALIGNANT LESION 2-14 Madiha Milligan MD [address] [place] [address] Phone: tel: fax: Referral ID Status Reason Start Date Expiration Date Visits Re quested Visits Authorized [id number] Closed 11/04/2024 11/04/2025 1 1 * Biopsy Procedure (Routine) - Authorization Not Needed Specialty Diagnoses / Procedures Referred By Anastacio palma Referred To Contact Dermatology Diagnoses AK (actinic keratosis) Procedures TN DESTRUCTION PREMALIGNANT LESION 1ST TN DESTRUCTION PREMALIGNANT LESION 2-14 Madiha Milligan MD [address] [place] [address] Phone: tel: fax: Madiha Lei MD [address] [place] [address] Phone: tel: fax: Referral ID Status Reason Start Date Expiration Date Visits Requested Visits Authorized [id number] Authorization Not Needed 11/04/2024 11/04/2025 1 1 Reason for Visit * Reason Comments New Patient * Biopsy Procedure (Routine) - Authorization Not Needed Specialty Diagnoses / Procedures Referred By Anastacio palma Referred To Contact Dermatology Diagnoses AK (actinic keratosis) Procedures TN DESTRUCTION PREMALIGNANT LESION 1ST TN DESTRUCTION PREMALIGNANT LESION 2-14 EA Madiha Lei MD [address] [place] [address] Phone: tel: fax: Madiha Lei MD [address] [place] [address] Phone: tel: fax: Referral ID Status Reason Start Date Expiration Date Visits Requested Visits Authorized [id number] Authorization Not Needed 11/04/2024 11/04/2025 1 1 Encounter Details Date Type Department Care Team (Late st Contact Info) Description 11/04/2024 2:15 PM EDT Office Visit SEP Dermatology [facility] [address] [facility] [address] [place] [id number] Madiha Lei MD [address] [place] [address] Neoplasm of unspecified behavior of bone, soft tissue, and skin (Primary Dx); AK (actinic keratosis); Actinic skin damage Social History Tobacco Use Types Packs/Day Years Used Date Smoking Tobacco: Former Cigarettes 3 40 1 976 - 2016 Smokeless Tobacco: Never Alcohol Use Standard Drinks/Week Comments Yes 1 (1 standard drink = 0.6 oz pur e alcohol) Sex and Gender Information Value Date Recorded Sex Assigned at Not on file Legal Sex Male 1:09 AM EDT Gender Identity Not on file Sexual Orientation Not on file Occupation Industry Job Start Date Job End Date Retired Not on file Not on file Not on file documented as of this encounter Progress Notes * Madiha Lei MD - 11/04/2024 2:15 PM EDT Images from the original note were not included. Chief Complaint: Chief Complaint Patient presents with ??? New Patient History of Present Illness: Julius Michel Jr. is a 74 y.o. male who presents for - Patient notes bump on L ear. Present for several months. Increasing in size. Tender. - Patient notes rough spots on ears. Occurring for several months. No changes in size and no changes in pigmentation. No accompanied symptoms. Pt's significant other Lashawn Sutherland present today Patient has not noted any other new, changing, symptomatic (itching, painful, bleeding) or problematic skin lesions and has practiced appropriate sun avoidance, sun screen use, and sun protective behaviors. Patient denies any other complaints or concerns. Dermatology history: None Review of Systems: No other reported skin problems. Constitutional: no reported F/C Eyes: no reported dry eyes/Sjogren's Ears/Nose/mouth/throat: no reported oral sores, no reported dry mouth C/V: no reported chest pain Resp: no reported SOB, no reported pleurisy GI: no reported abd pain, no reported N/V : no reported pain with urination, no reported blood in urine M/S: no reported joint complaints, no reported arthralgias, no reported muscle weakness, no reported trouble brushing hair/standing up from seated position Neuro: no reported seizures, no reported MARCANO's Psych: no reported change in mood Endo: no reported weight gain/loss Heme/lymph: no reported easy bruising, no reported swollen glands/lymph nodes. No reported hx of clotting. Allergic/Immunologic: no reported symptoms of allergy No reported Raynaud symptoms ? Medical History: Patient Active Problem List Diagnosis ??? Syncope ??? Dizziness ??? S/P placement of cardiac pacemaker ??? History of bradycardia ??? Cerebellar stroke (HCC) Medications: Current Outpatient Medications on File Prior to Visit Medication Sig Dispense Refill ??? aspirin 81 mg Oral Tablet, Delayed Release (E.C.) Take 81 mg by mouth daily. 0 ??? atorvastatin (LIPITOR) 80 mg Oral Tablet Take 1 Tab by mouth nightly. 30 Tab 0 ??? lisinopril (PRINIVIL;ZESTRIL) 20 mg Oral Tablet Take 20 mg by mouth daily. 3 ??? meclizine (ANTIVERT) 25 mg Oral Tablet Take 1 Tab by mouth 3 times daily as needed for Dizziness. 90 Tab 0 ??? omeprazole (PRILOSEC) 40 mg Oral Capsule, Delayed Release(E.C.) Take by mouth daily. No current facility-administered medications on file prior to visit. Allergies: No Known Allergies Family History: Family History Problem Relation Age of Onset ??? Migraines Mother ??? Heart Attack Mother ??? Heart Attack Father ??? Diabetes Father ??? Migraines Sister ??? Colon Cancer Brother Social History: Social History Socioeconomic History ??? Marital status: Spouse name: Not on file ??? Number of children: Not on file ??? Years of education: Not on file ??? Highest education level: Not on file Occupational History ??? Occupation: Retired Tobacco Use ??? Smoking status: Former Current packs/day: 0.00 Average packs/day: 3.0 packs/day for 40.0 years (120.0 ttl pk-yrs) Types: Cigarettes Start date: 1975 Quit date: 2016 Years since quittin.3 ??? Smokeless tobacco: Never Substance and Sexual Activity ??? Alcohol use: Yes Alcohol/week: 0.6 oz Types: 1 Cans of beer per week ??? Drug use: No ??? Sexual activity: Not on file Other Topics Concern ??? Not on file Social History Narrative ??? Not on file Social Drivers of Health Financial Resource Strain: Not on file Food Insecurity: Not on file Transportation Needs: Not on file Physical Activity: Not on file Stress: Not on file Social Connections: Unknown (03/29/2023) Received from [facility] Family and Community Support ??? Help with Day-to-Day Activities: Not on file ??? Lonely or Isolated: Not on file Intimate Partner Violence: Unknown (03/29/2023) Received from [facility] Abuse Screen ??? Unsafe at Home or Work/School: Not on file ??? Feels Threatened by Someone?: Not on file ??? Does Anyone Keep You from Contacting Others or Doint Things Outside the Home?: Not on file ??? Physical Sign of Abuse Present: Not on file Housing Stability: Unknown (03/29/2023) Received from [facility] Housing Stability ??? Current Living Arrangements: Not on file ??? Potentially Unsafe Housing Conditions: Not on file Exam/Assessment/Plan: Ana Lilia Ward MA present in room Well-appearing patient in no apparent distress. Alert and oriented x 3. Mood and affect within normal limits. A focused skin examination was performed including ears There were no vitals taken for this visit. Neoplasm of unspecified behavior of bone, soft tissue, and skin Exam: Keratotic papule on L ear Procedure: Shave Biopsy. Site: L ear Differential diagnosis: NMSC vs other Time out was performed and the patient's identity was confirmed by name and solicited date of birthprior to the procedure. Written informed consent was obtained from the patient, including but not limited to pain, bleeding, blistering, bruising, infection, poor wound healing, scarring, discoloratio n/dyspigmentation, nerve damage which may include numbness or paralysis, possible need for further treatment etc. The site was cleaned with an alcohol swab and infiltrated with 1% lidocaine with epinephrine. The biopsy was performed by making a transverse incision through the lesion using a razor bl elmo. Hemostasis was achieved with topical aluminum chloride. The wound was dressed with petrolatum and a wound dressing. The specimen was submitted for histopathologic review. No immediate complications were encountered. The patient was provided with wound care instructions. The patient will be contacted with results of the biopsy once available. Informed patient to alert us immediately if there is any development of progressive/persistent erythema, tenderness, bleeding or other concerns at thesite of procedure. Patient expressed understanding. Actinic keratosis Actinic skin damage Exam: Erythematous scaly thin papules on the L ear x 3, R ear x 2 Pre-malignant nature discussed with patient; also discussed there is possible risk of malignant transformation of these lesions. Discussed treatment recommended given pre-malignant nature. Discussed treatment options, including liquid nitrogen cryotherapy, topical 5-FU BID for 2 weeks, and 5-FU + Ca lcipotriene BID for 4 days if on face/scalp and 7 days if on arms, PDT. Risks of scarring, hyper/hypo-pigmentation also discussed. Patient elects to proceed with cryotherapy Site(s): L ear x 3, R ear x 2 Procedure: Cryotherapy. Number of Lesions: 5 The lesion(s) was/were treated with liquid nitrogen x2 cycles each after verbal consent was obtained from the patient who understands that the risks include but are not limited to pain, post-inflammatory pigment changes, swelling, blister, infection, recurrence, possible need for further treatment,and scarring. Wound care instructions were provided. -The patient was advised regarding the use of sunscreens and sun protection strategies (e.g. wide brimmed hats, photo-protective clothing, avoidance of outdoor exposure between 10 AM and 4 PM). I recommend over the counter broad spectrum sunscreen SPF 30 or higher. Reapply every 2 hours when outdoors. Informed patient to return to clinic promptly for re-evaluation if no improvement, changes in size, changes in pigmentation, etc occur. Patient expressed understanding and agrees with plan Follow Up: Return for Offered FBSE appt; pt declined & opted to f/u PRN. . Strict return precautions discussed. Patient understands to contact us with any interim concerns. Patient understands to contact usimmediately with any changes in medical history (e.g females advised to inform clinic if trying to conceive, , or ) as this may impact medications, follow up, etc. Patient expressed understanding. ???I have reviewed this note and made changes to it as appropriate. It accurately reflects my work and decisions made during this visit.?? Madiha Lei M.D. documented in this encounter Miscellaneous Notes * Patient Instructions - Madiha Lei MD - 11/04/2024 2:15 PM EDT Images from the original note were not included. If you had a biopsy today, I recommend the following for wound care: I recommend leaving the bandage in place and avoiding showering/baths for 24 hours. Thereafter, recommend washing sites with water and soap daily and applying vaseline liberally (at least once daily)to optimize healing. We recommend AGAINST topical antibiotics like neosporin and triple antibiotic,as these can cause skin allergy and rash, which makes healing more difficult. We will call you withthe results. If you had spots frozen (treated with cryotherapy) today, I recommend daily application of vaselineto areas to help the healing process. Strongly recommend photoprotection; specifically recommend: - stay out of sun, particularly from 10 am to 4 pm - broad spectrum sunscreen with SPF30 or above (look for sunscreens with zinc oxide, titanium dioxide in them) - adults: apply 2 tablespoons to entire body to ensure thick enough layer When outside for prolonged periods, re-apply sunscreen every 2-3 hours Specific sunscreens that we love: Neutrogena Pure and Free Baby, Cerave or Vanicream sunscreens, EltaMD (can order this on [employer]) - broad-rimmed hat [employer] has hats with UPF (the clothing sun protection factor) - protective clothing (clothing with UV protection factor, also called UPF) [employer] is one great option; [employer] also makes UPF clothing Recommend that you perform monthly skin exams, with special attention to the ABCDEs (as illustratedbelow; reproduced from the [employer]), and, if you have a history of skin cancer(particularly melanoma), we recommend that you palpate your scars from prior melanoma excision oncemonthly. Please call us and let us know if you notice any new or changing lesions or if you feel any new bumps within scars from prior skin cancer surgeries (we will get you in to have lesions evaluated further). A - Asymmetrical shape - One half of the lesion does not match the other half. B - Border -- The edges are ragged, notched, irregular, or blurred C- Color - The color is not the same throughout or it has shades of cha, brown, black, red, white, or blue. D - Diameter - The mole is greater than 6 millimeters in size, about the size of a pencil eraser. E - Evolving - lesions that are changing should be examined Please give us a call if you notice any new or changing lesions. documented in this encounter Plan of Treatment Scheduled Orders Name Type Priority Associated Diagnoses Orde r Schedule TN TANGENTIAL BIOPSY SKIN SINGLE LESION TN Charge Routine Neoplasm of unspecified behavior of bone, soft tissue, and skin Ordered: 11/04/2024 TN DESTRUCTION PREMALIGNANT LESION 1ST TN Charge Routine AK (actinic keratosis) Ordered: 11/04/2024 TN DESTRUCTION PREMALIGNANT LESION 2-14 EA TN Charge Routine AK (actinic keratosis) Ordered: 11/04/2024 documented as of this encounter Procedures Procedure Name Priority Date/Time Associated Diagnosis Comments DERMATOPATHOLOGY TISSUE SEND OUT REQUEST Routine 11/07/2024 4:42 PM EDT Neoplasm of unspecified behavior of bone, soft tissue, and skin documented in this encounter Results * DERMATOPATHOLOGY TISSUE SEND OUT REQUEST (11/07/2024 4:42 PM EDT) Tissue us Madiha Lei MD PATHOLOGY ORDERABLES Final Result [facility] [address] [place] [address] documented in this encounter Visit Diagnoses Diagnosis Neoplasm of unspecified behavior of bone, soft tissue, and skin- Primary AK (actinic keratosis) Actinic keratosis Actinic skin damage Other chronic dermatitis due to solar radiation documented in this encounter
--- OUTSIDE RECORDS SUMMARY | 2024-11-19 09:00 | XMS_ITS | Encounter Summary ---
Author Organization [facility] [address] Care Team Providers Care Metal Numerical Control Programmer Name Role Phone Unavailable Primary Care Provider Unavailabl e Reason for Visit * In Office Procedure (Routine) - Authorization Not Needed Specialty Diagnoses / Procedures Referred By Anastacio t Referred To Contact Diagnoses SCC (squamous cell carcinoma) Procedures SC MOHS MICROGRAPHIC H/N/H/F/G 1ST STAGE 5 BLOCKS Madiha Lei MD [address] [place] [address] Phone: tel: fax: Telma Cai MD [address] [place] [address] Phone: tel: fax: Referral ID Status Reason Start Date Expiration Date Visits Requested Visits Authorized [id number] Authorization Not Needed 11/11/2024 11/11/2025 1 1 Encounter Details Date Type Department Care Team (Late st Contact Info) Description 11/19/2024 9:00 AM EDT Office Visit SEP DERM MOHS [facility] [address] [place] [address] Telma Cai MD [address] [place] [address] 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 is a 74 y.o. male who is being seen for squamous cell carcinoma located on the left ear. The lesion has been previously biopsied. It has been present for months. Pertinent positives include: a pacemaker, on blood thinner: aspirin 81mg, and this is their first skin cancer. Pertinent negatives include: no artifical heart valves, no defibrillator, no history of bleeding disorders, no prior Mohs surgery, no previous skin surgeries, no immunosuppression, no history of Hepatitis C, no history of radiation treatment, no joint replacements within the past 6 months, and no lidocaine allergy. No Known Allergies Social History Tobacco Use Smoking Status Former ??? Current packs/day: 0.00 ??? Average packs/day: 3.0 packs/day for 40.0 years (120.0 ttl pk-yrs) ??? Types: Cigarettes ??? Start date: 1975 ??? Quit date: 2015 ??? Years since quittin.4 Smokeless Tobacco Never Review of Systems: Bleeding problems: No Healing Problems: No Scarring (hypertrophic/keloidal) problems: No Current illness or fever:No Other: Impression/Plan: Encounter Diagnosis Name Primary? Squamous cell carcinoma of left ear Yes 1. 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 Plan: Mohs Surgery Mohs Operative Note Mohs Date of Previous Biopsy: 11/04/2024 Biopsy Photograph Reviewed: Yes Referring Provider: Madiha Lei MD Location: left ear Preop Diagnosis: Moderately differentiated squamous cell carcinoma Postop Diagnosis: Same Mohs AUC Score:8 Tumor Stage: T1 (Tumor Size Less Than or Equal to 2 cm) Number of Stages: 2 Pre-op Size:1.1 cm x 0.7 cm Anesthesia: local infiltration-0.5% lidocaine with 1:200,000 epinephrine and a 1:10 solution of 8.4% sodium bicarbonate (3 cc) Estimated Blood Loss: minimal Complications: none Surgeon and Pathologist: Telma Cai MD Assistants: Trinity THOMPSON, Katerin Gan [facility], Parish Dewitt RN,and Elizabeth Chen Pre-op antibiotics given: No Indications for Mohs Surgery Tumors in this location are included in Area H: Tumors in this location are located on the central face, eyelids, eyebrows, nose, lips, chin, periauricular skin, orthodoxy, genitalia, hands, feet, nail units, ankles, and nipples or areola. The patient's tumor exhibits the following clinical area critical for tissue conservation Based on my medical judgement, Mohs surgery is the most appropriate treatment for this cancer compared to other treatments. The rationale for Mohs was explained to the patient and consent was obtained. The risks, benefits and alternatives to therapy were discussed in detail. Specifically, the risksof infection, scarring, bleeding, prolonged wound healing, incomplete removal, allergy to anesthesia, temporary or permanent nerve injury and tumor recurrence were addressed. We also had a lengthy discussion on the anticipated possible repairs including the resulting permanent scars and expected healing time as well as the possible need for further treatment for reconstruction including consulting with other specialized physicians. Prior to the procedure, the treatment site was clearly identified and confirmed by the patient, patient was identified with name and date of , and correct procedure was verified. Temla Cai MD operated in two distinct and integrated capacities as the surgeon and pathologist. STAGE 1: The area was prepped with Alcohol. A rim of normal appearing skin was marked circumferentially around the lesion. The area was infiltrated with local anesthesia.The tumor was first debulked with a curette to remove clinically apparent tumor. An incision at a 45 degree angle following the standard Mohs approach was done and the specimen was harvested as a microscopic controlled layer. Hemostasis was achieved with bipolar forceps coagulation. The specimen was oriented, mapped and placed in 1 block(s). Each section was then chromacoded and processed in the Mohs lab using the Mohs protocol and submitted for frozen section. Frozen section analysis showed: Residual tumor seen. Histology:There were atypical large keratinocytes with glassy cytoplasm invading into the dermis with surrounding inflammation. Depth of Invasion: Dermis Perineural Invasion: absent Scar Tissue: absent Surgical Defect Size: 1.5 cm x 0.8 cm STAGE 2: The patient was prepped in the same fashion as the first stage. An additional 3 cc of local anesthetic was added. Using a similar technique to that described above, a thin layer of tissue was removed from all areas where tumor was visible on the previous stage. The tissue was again oriented, mapped, divided into 1 block(s) dyed, and processed as above. Frozen section analysis showed: No residual tumor seen. Histology: There were no invasive malignant tumor cells seen on examined sections. Surgical Defect Size: 1.6 cm x 0.8 cm Depth of Final Defect: Full thickness Events: None Repair Type: Flap Repair Repair Note: Surgeon: Telma Cai MD Location: left ear Repair Anesthesia: local infiltration-0.5% lidocaine with 1:200,000 epinephrine and a 1:10 solutionof 8.4% sodium bicarbonate(9 cc) Repair Type: Flap Flap Type: Helical Rim Advancement Flap Primary Defect Dimensions and Area: 1.6 cm x 0.8 cm = 1.28 cm2 Secondary Defect Dimensions and Area: 3 cm x 2 cm = 6 cm2 Total Repair Area: 7.28 cm2 The surgical defect and surrounding skin were prepped with Betadine. The defect edges were debeveled with a #15 scalpel blade. Given the location of the defect, shape of the defect and the proximity to free margins the flap listed above was deemed most appropriate. Using a sterile surgical marker, an appropriate flap was drawn incorporating the defect and placing the expected incisions within the relaxed skin tension lines or within cosmetic subunits where possible. The area thus outlined was incised with a #15 scalpel blade. The skin margins were undermined to an appropriate distance in all directions utilizing blunt undermining scissors. During the repair hemostasis was achieved with bipolar forceps coagulation. The subcutaneous tissue and dermis were closed with 4-0 monocryl. Epidermalclosure was achieved with 5-0 chromic gut (running) Vaseline + pressure dressing with telfa were applied. We reviewed with the patient in detail post-care instructions and they were given written instructions for post- care as well. Patient is not to engage in any heavy lifting, exercise, swimming, or strenuous activities for the next 14 days. Should the patient develop any fevers, chills, bleeding, severe pain or have any questions/concerns, the patient will contact the office immediately. CLIA #: [id number] Follow up: with general picking supervisor and if needed for a wound check documented in this encounter Plan of Treatment Scheduled Orders Name Type Priority Associated Diagnoses Orde r Schedule SC MOHS MICROGRAPHIC H/N/H/F/G EACH ADDL STAGE SC Charge Routine Squamous cell carcinoma of left ear Ordered: 11/19/2024 SC ADJT TIS TRNSFR/REARRGMT E/N/E/L DFCT 10 SQ CM/< SC Charge Routine Squamous cell carcinoma of left ear Ordered: 11/19/2024 documented as of this encounter Visit Diagnoses Diagnosis Squamous cell carcinoma of left ear- Primary documented in this encounter Orders Charge Count Last Ordered Date First Orde red Date SC MOHS MICROGRAPHIC H/N/H/F /G 1ST STAGE 5 BLOCKS 1 11/19/2024 documented in this encounter
--- NOTE | 2024-12-18 | CA_ITS ---
APPROVED REPORT Exam: Pharmacologic Technologist: Michelle Jimenez Ht: 5 ft 7 in Wt: 212 lbs BSA: 2.07 m2 HR: 60 bpm BP: 160/70 mmHg Medical History Cardiac Risk Factors: HTN, Hyperlipidemia, Diabetes (non-insulin), FHX of CAD, Smoking Stress Test Details HR Resting HR: 60 bpm Max Heart Rate (APMHR): 148.836644 bpm Target HR (85% APMHR): 125.593256 bpm Recovery HR: 62 bpm BP Resting BP: 160.0/70.0 mmHg Recovery BP: 137.0/60.0 mmHg ECG Stress ECG Conclusion During lexiscan pt experinced no symptoms. No arrhythmias noted. EKG nondiagnostic jovani. Electronically signed by : Dulce Packer MD 12/22/2024 12:07:39
--- OUTSIDE RECORDS SUMMARY | 2024-12-18 12:12 | XMS_ITS | Encounter Summary ---
Author Organization [place] [address] Care Team Providers Care Head Of Art Name Role Phone Unavailable Primary Care Provider Unavailabl e Reason for Visit * Reason Onset Date Comments Other 11/13/2024 Encounter Details Date Type Department Care Team (Late st Contact Info) Description 11/13/2024 Telephone SEP DERM [facility] [address] [facility] 2ND FLOOR, [address] [place] [address] Telma Cai MD [address] [phone] Other Social History Tobacco Use Types Packs/Day Years [...] on file documented as of this encounter Miscellaneous Notes * Telephone Encounter - Trinity Tirado MA - 11/13/2024 8:39 AM EDT Patient called and declined to come in today. * Telephone Encounter - Trinity Tirado MA - 11/13/2024 8:31 AM EDT Left message for patient to call back, calling for cancellation appt. documented in this encounter Plan of Treatment Not on file documented as of this encounter Visit Diagnoses Not on filedocumented in this encounter
--- OUTSIDE RECORDS SUMMARY | 2024-12-18 12:12 | XMS_ITS | Clinical Summary ---
Author Organization [facility] Address [facility] [place] [address] Phone Care Team Providers Care Tooth Clerk Name Role Phone Unavailable Primary Care Provider Unavailabl e Allergies No known active allergies Medications omeprazole (PRILOSEC) 40 mg Oral Capsule, Delayed Release(E.C.) Take by mouth daily. Active aspirin 81 mg Oral Tablet, Delayed Release (E.C.) Take 81 mg by mouth daily. 0 01/10/2018 Active lisinopril (PRINIVIL;ZESTRI L) 20 mg Oral Tablet Take 20 mg by mouth daily. 3 10/24/2017 Active meclizine (ANTIVERT) 25 mg Oral Tablet Take 1 Tab by mouth 3 times daily as needed for Dizziness. 90 Tab 01/17/2018 Active atorvastatin (LIPITOR) 80 mg Oral Tablet Take 1 Tab by mouth nightly. 30 Tab 01/17/2018 Active Active Problems Problem Noted Date Diagnosed Date Syncope 01/15/2018 Dizziness 01/15/2018 S/P placement of cardiac pacemaker 01/15/2018 History of bradycardia 01/15/2018 Overview (01/15/2018): 01/15/18: Reportedly had symptomatic bradycardia last week down to 30s and had subsequent pacemaker placed. Unknown rhythm (eg. Heart block) associated with heart rate. 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) 11/13/2024 Telephone SEP DER[facility] [address] [place] [address] [address]ND FLO[address], [address] [place], [place] [id number] Telma Cai MD Other 11/11/2024 Results Follow-Up [facility] Dermatology [address] [place] [address] Madiha Lei MD DERMATOPATHOLOGY TISSUE SEND OUT REQUEST 11/04/2024 2:15 PM EDT Office Visit [facility] Dermatology [address] [place] [address] Madiha Lei MD Neoplasm of unspecified behavior of bone, soft tissue, and skin (Primary Dx); AK (actinic keratosis); Actinic skin damage from Last 3 Months Surgical History Surgery Date Site/Laterality Comments UMBILICAL HERNIA REPAIR 06/18/2013 - 06/17/2014 PACEMAKER PLACEMENT 12/16/2017 - 01/15/2018 Right CARDIAC SURGERY 01/10/2018 Pacemaker HERNIA REPAIR 06/18/2015 - 06/17/2016 HAND SURGERY 06/18/2015 - 06/17/2016 MRSA Medical History Medical History Date Comments Hypertension Family History Medical History Relation Name Comments Colon Cancer Brother 1 Diabetes Father Heart Attack Father Heart Attack Mother Migraines Mother Migraines Sister 1 Relation Name Status Comments Brother 1 Alive Brother 2 Alive Father Alive Mother Alive Sister 1 Alive Sister 2 Alive Social History Tobacco Use Types Packs/Day Years [...] file Not on file Not on file Obstetrics History Last Filed Vital Signs Vital Sign Reading Time Taken Comments Blood Pressure 155/80 01/17/2018 3:20 PM EDT Pulse 72 01/17/2018 3:20 PM EDT Temperature 36.6 C (97.8 F) 01/17/2018 3:20 PM EDT Respiratory Rate 18 01/17/2018 3:20 PM EDT Oxygen Saturation 100% 01/17/2018 3:20 PM EDT Inhaled Oxygen Concentration - - Weight 90.7 kg (200 lb) 01/15/2018 7:55 PM EDT Height 170.2 cm (5' 7 ) 01/15/2018 7:55 PM EDT Body Mass Index 31.32 01/15/2018 7:55 PM EDT Plan of Treatment Health Maintenance Due Date Last Done Comments Wellness Exam Medicare 1953 Hepatitis C Screening 1970 DTaP/TDaP/Td (1 - Tdap) 1971 Cologuard 1997 Colon Cancer Screening 1997 Colonoscopy 1997 FIT 1997 Sigmoidoscopy 1997 Virtual Colonography 1997 Low Dose Lung Cancer Screening 2002 Zoster (1 of 2) 2002 AAA Screening 2017 Pneumococcal Vaccine 50+ (2 of 2 - PCV) 04/05/2023 04/05/2022 COVID-19 Vaccine (1 - 2023-2 5 season) 2024 Influenza Vaccine (#1) 2025 4, 04/11/2023, 04/05/2022 Hepatitis B Vaccine Aged Out No longe r eligible based on patient's age to complete this topic Meningococcal B Vaccine Aged Out No l onger eligible based on patient's age to complete this topic Procedures Procedure Name Priority Date/Time Associated Diagnosis Comments DERMATOPATHOLOGY TISSUE SEND OUT REQUEST Routine 11/07/2024 4:42 PM EDT Neoplasm of unspecified behavior of bone, soft tissue, and skin from Last 3 Months Results * DERMATOPATHOLOGY TISSUE SEND OUT REQUEST (11/07/2024 4:42 PM EDT) Tissue us Madiha Lei MD PATHOLOGY ORDERABLES Final Result [facility] DERMATOPATHOLOGY [address] [place] [address] from Last 3 Months Insurance [place] Advance Directives For more information, please contact: [phone] * Full Code (Latest Code Status on File) Date Activated Date Inactivated Comments 01/15/2018 8:32 PM 01/17/2018 9:22 PM
--- OUTSIDE RECORDS SUMMARY | 2024-12-18 12:12 | XMS_ITS | Clinical Summary ---
Author Organization [facility] Address [address] [place] [address] Care Team Providers Care Research Director Name Role Phone Unavailable Primary Care Provider Unavailabl e Social History Tobacco Use Types Packs/Day Years Used Date Smoking Tobacco: Never Assessed Sex and Gender Information Value Date Recorded Sex Assigned at Not on file Legal Sex Male 4:18 PM EDT Gender Identity Not on file Sexual Orientation Not on file Last Filed Vital Signs Vital Sign Reading Time Taken Comments Blood Pressure 161/77 11/02/2022 4:21 PM EDT Pulse 57 11/02/2022 4:21 PM EDT Temperature - - Respiratory Rate - - Oxygen Saturation - - Inhaled Oxygen Concentration - - Weight - - Height 165.1 cm (5' 5 ) 11/02/2022 4:21 PM EDT Body Mass Index - - Plan of Treatment Health Maintenance Due Date Last Done Comments [facility]-Depression Screening 1952 [facility]-Infant/Child/Adol SDOH Screenings 1950 [facility]- SDOH Screenings 1970 [facility]-Adult SDOH Screenings 1970 [facility]-DTaP,Tdap,and Td Vaccine s (1 - Tdap) 1971 CT Colonography 1997 Colonoscopy 1997 FIT-DNA 1997 FIT 1997 FOBT 1997 Sigmoidoscopy 1997 [facility]-Colorectal Cancer Screening 1997 [facility]-Zoster Vaccines (1 of 2) 2002 [facility]-Pneumococcal Vaccine: 50 + Years (2 of 2 - PCV) 04/05/2023 04/05/2022 [id number] Vaccine (1 - 20 24-25 season) 2024 [facility]Y-Influenza Vaccine (Seas[place] n Ended) 2025 04/05/2022 UKY-RSV Vaccine: 60+ Years o r (1 - 1-dose 75+ series) 2027 HPV Vaccines Aged Out No longer eligi ble based on patient's age to complete this topic UKY-HIB Vaccines Aged Out No longer e ligible based on patient's age to complete this topic [facility]-Hepatitis A Vaccines Aged Out No longer eligible based on patient's age to complete this topic [facility]Y-IPV Vaccines Aged Out No longer e ligible based on patient's age to complete this topic UKY-Rotavirus Vaccines Aged Out No lo nger eligible based on patient's age to complete this topic [place]
--- OUTSIDE RECORDS SUMMARY | 2024-12-18 12:12 | XMS_ITS | Encounter Summary ---
Author Organization [place] [address] Care Team Providers Care M1 Armor Crewman Name Role Phone Unavailable Primary Care Provider Unavailabl e Encounter Details Date Type Department Care Team (Latest Contact Info) Description 11/11/2024 Results Follow-Up SEP Dermatology [facility] [address] [facility] [address] [place] [address] Madiha Lei MD [address] [facility] [place] [phone] DERMATOPATHOLOGY TISSUE SEND OUT REQUEST Social History Tobacco Use Types Packs/Day Years [...] on file documented as of this encounter Plan of Treatment Not on file documented as of this encounter Visit Diagnoses Not on filedocumented in this encounter
--- NOTE | 2024-12-18 13:00 | NM_ITS ---
APPROVED REPORT Exam: Nuclear Stress Test Indication: SOB, HTN, High cholesterol, Tobacco use, Family history, CAD, Hx of CO Patient Location: Outpatient Stress Tech: Michelle Jimenez NM Tech:Rajni Drummond, ARRT, RT (R)(N) Ht: 5 ft 7 in Wt: 200 lbs HR: 60 bpm BP: 160/70 mmHg BSA: 2.02 m2 TID: 1.06 BMI: 31.3 History: SOB, HTN, High cholesterol, Tobacco use, Family history, CAD, Hx of M Procedure: Patient received 0.4 mg of intravenous Lexiscan, resting heart rate 60 bpm, resting blood pressure 160/70 mmHg, with Lexiscan maximum heart rate achieved was 67 bpm which is % of the maximum predicted heart rate and blood pressure was 147/60 mmHg. With Lexiscan, patient denied any complaint of chest pain. Cardiac Stress and Resting SPECT Images: Cardiac Stress and Resting SPECT images were obtained using technetium 99m Myoview 32.2 mCi stress and 10.93 mCi at rest. Resting stress imaging in supine and prone positions demonstrate a large sized, moderate, predominantly fixed perfusion defect in the inferior, inferolateral, and apical LV bingham. There is a region of reversibility towards the mid to distal inferior wall. Gated imaging demonstrates mild reduction in global LV systolic function. There is moderate hypokinesis of the inferior LV wall. There is severe hypokinesis of the apical LV wall. LVEF is calculated at 45%. Conclusion: Large sized, moderate, predominantly fixed perfusion defect in the inferior, inferolateral, and apical LV bingham. There is a region of reversibility towards the mid to distal inferior wall. Findings are suggestive of partial reversible ischemia. Gated imaging demonstrates mild reduction in global LV systolic function. There is moderate hypokinesis of the inferior LV wall. There is severe hypokinesis of the apical LV wall. LVEF is calculated at 45%. Electronically signed by : Dulce Packer MD 12/22/2024 12:07:16
[2024-12-18] MEDS: ISOTOPE MYOVIEW (PER STUDY) 1 DOSE IV (14:20)
[2024-12-18] MEDS: SODIUM CHLORIDE 0.9% 10ML SYR (RAD ONLY) 10 ML IV ×2 (14:20→14:21)
== END 2024-12-18 23:59 | disposition home or self-care (01) ==
LOC: RAD 12:11
PROVIDERS: PCP Family Medicine; Visit Provider Physician Assistant
DX: R94.39 Abnormal result of other cardiovascular function study (principal); I25.10 Atherosclerotic heart disease of native coronary artery without angina pectoris; I10 Essential (primary) hypertension; E78.00 Pure hypercholesterolemia, unspecified; Z72.0 Tobacco use; I25.2 Old myocardial infarction; R94.31 Abnormal electrocardiogram [ECG] [EKG]; R20.0 Anesthesia of skin
CPT/HCPCS: 78452; 93016; 93017; 93018; A9502; J2785

== ENCOUNTER 2025-03-10 09:57 | Outpatient (CLI) | payer MEDICARE, SELFPAY ==
--- NOTE | 2025-03-10 10:03 | XR_ITS ---
FINAL REPORT CLINICAL HISTORY: left shoulder pain and numbness FINDINGS: Three views of the left shoulder were obtained. There is no fracture or dislocation. There is mild AC joint degenerative disease. Soft tissues are unremarkable. IMPRESSION: Mild AC joint degenerative disease. Reviewed, Interpreted and Dictated by Lacie Drkae MD Transcribed by Carmen Holland Authenticated and [facility]
--- OUTSIDE RECORDS SUMMARY | 2025-03-10 10:10 | XMS_ITS | Clinical Summary ---
Author Organization [facility] Address [address] [place] [address] Care Team Providers Care Principal System Software Engineer Name Role Phone Unavailable Primary Care Provider [...] Date Last Done Comments [facility]-Depression Screening 1952 [facility]-/Child/Adol SDOH Screenings 1952 [facility]- SDOH Screenings 1970 [facility]-Adult SDOH Screenings 1970 [facility]-DTaP,Tdap,and Td Vaccine s (1 - Tdap) 1971 CT Colonography 1997 Colonoscopy 1997 FIT-DNA 1997 FIT 1997 FOBT 1997 Sigmoidoscopy 1997 [facility]-Colorectal Cancer Screening 1997 [facility]-Zoster Vaccines (1 of 2) 2002 [facility]-Pneumococcal Vaccine: 50 + Years (2 of 2 - PCV) 04/05/2023 04/05/2022 [id number] Vaccine (1 - 20 24-25 season) 2025 [facility]-Influenza Vaccine (#1) 2025 04/05/2022 [facility]Y-RSV Vaccine: 60+ Years o [...] patient's age to complete this topic Insurance RACIEL
--- OUTSIDE RECORDS SUMMARY | 2025-03-10 10:10 | XMS_ITS | Clinical Summary ---
Author Organization [facility] Address [facility] [place] [address] Phone Care Team Providers Care Tallier Name Role Phone Unavailable Primary Care Provider [...] block) associated with heart rate. Cerebellar stroke Surgical History Surgery Date Site/Laterality Comments UMBILICAL [...] COVID-19 Vaccine (1 - 2023-2 5 season) 2025 Influenza Vaccine (#1) 2025 , 04/11/2023, 04/05/2022 Hepatitis B Vaccine Aged Out No longe r eligible based on patient's age to complete this topic Meningococcal B Vaccine Aged Out No l onger eligible based on patient's age to complete this topic Insurance [place] [employer] MR Advance Directives For more information, please contact: [phone] * Full Code (Latest Code Status on File) Date Activated Date Inactivated Comments 01/15/2018 8:32 PM 01/17/2018 9:22 PM
--- OUTSIDE RECORDS SUMMARY | 2025-03-10 10:10 | XMS_ITS | Encounter Summary ---
Author Organization [place] [address] Care Team Providers Care Mobile Lounge Driver Name Role Phone Unavailable Primary Care Provider Unavailabl e Encounter Details Date Type Department Care Team (Latest Contact Info) Description 11/11/2024 Results Follow-Up SEP Dermatology [facility] [address] [facility] [address] [place] [address] Madiha Lei MD [address] [facility] [place] [phone] DERMATOPATHOLOGY TISSUE SEND OUT REQUEST Social History [...]
--- OUTSIDE RECORDS SUMMARY | 2025-03-10 10:10 | XMS_ITS | Clinical Summary ---
Author Organization [facility] Address [address] [place] [phone] Care Team Providers Care Insurance Account Specialist Name Role Phone Mag Garcia MD, Mahesh Primary Care Provider + Allergies No known active allergies Medications aspirin 81 MG EC tablet Take 81 mg by mouth Daily. Active atorvastatin (LIPITOR) 80 MG tablet Take 80 mg by mouth Daily. Active BISOPROLOL FUMARATE PO Take 10 mg by mouth Daily. Active lisinopril (PRINIVIL,ZESTRI L) 20 MG tablet Take 20 mg by mouth Daily. Active meclizine (ANTIVERT) 25 MG tablet Take 25 mg by mouth 3 (Three) Times a Day As Needed for dizziness. Active omeprazole (priLOSEC) 40 MG capsule Take 40 mg by mouth Daily. Active BRILINTA 90 MG tablet tablet TAKE 1 TAB BY MOUTH 2X DAILY. 5 02/28/2018 Active Active Problems No known active problems Family History Medical History Relation Name Comments Cancer Brother lung COPD Father Heart disease Father Heart disease Mother Relation Name Status Comments Brother lung Alive Father Mother Social History Tobacco Use Types Packs/Day Years Used Date Smoking Tobacco: Former Cigarettes Q uit: 2016 Smokeless Tobacco: Never Alcohol Use Standard Drinks/Week Comments Yes 0 (1 standard drink = 0.6 oz pur e alcohol) Abuse Screen Answer Date Recorded Unsafe at Home or Work/School Not on file Feels Threatened by Someone? Not on file 05/2023 Does Anyone Keep You from Co ntacting Others or Doint Things Outside the Home? Not on file 03/29/2023 Physical Sign of Abuse Present Not on file 1 Housing Stability Answer Date Recorded Current Living Arrangements Not on file 03/18 Potentially Unsafe Housing Conditions Not on billy e 03/29/2023 Family and Community Support Answer Colt e Recorded Help with Day-to-Day Activities Not on file 03/29/2023 Lonely or Isolated Not on file 03/29/2023 Employment Answer Date Recorded Do you want help finding or keeping work or a contreras b? Not on file 03/29/2023 Disabilities Answer Date Recorded Concentrating, Remembering, or Making Decisions Difficulty Not on file 03/29/2023 Doing Errands Independently Difficulty Not on fi le 03/29/2023 Education Answer Date Recorded Help with school or training? Not on file Preferred Language Not on file 03/29/2023 Sex and Gender Information Value Date Recorded Sex Assigned at Not on file Legal Sex Male 11:41 AM EDT Gender Identity Not on file Sexual Orientation Not on file Last Filed Vital Signs Vital Sign Reading Time Taken Comments Blood Pressure 138/86 03/18/2018 1:50 PM EDT Pulse - - Temperature 36.9 C (98.4 F) 03/18/2018 1:50 PM EDT Respiratory Rate - - Oxygen Saturation - - Inhaled Oxygen Concentration - - Weight 97.1 kg (214 lb) 03/18/2018 1:50 PM EDT Height 171.5 cm (5' 7.5 ) 03/18/2018 1:50 PM EDT Body Mass Index 33.02 03/18/2018 1:50 PM EDT Plan of Treatment Health Maintenance Due Date Last Done Comments TDAP/TD VACCINES (1 - Tdap) 1971 COLOGUARD 1997 COLON CANCER SCREENING 5 YEAR SIGMOIDOSCOPY 1997 COLONOSCOPY [address]CER SCREENING [address] COLONOGRAPHY 1997 FECAL OCCULT BLOOD TEST 1997 FIT Testing (1 year) 1997 Pneumococcal Vaccine 50+ (1 of 1 - PCV) 2002 ZOSTER VACCINE (1 of 2) 2002 AAA SCREEN ONCE 2017 ANNUAL PHYSICAL 03/15/2018 HEPATITIS C SCREENING 03/15/2018 INFLUENZA VACCINE 01/16/2025 COVID-19 Vaccine ( season) 2025 Insurance MEDICARE A & B Member Subscriber Plan / Payer ( fective 2017-Present) Name:Julius Michel Scooter Villanueva Member ID:[id number] Relation to Subscriber:Self Name:Julius Michel Subscriber ID:[id number] Payer ID:[id number] Group ID:Not on file Type:Not on file Address: [address] Care Teams Insurance Account Specialist Relationship Specialty Start Date End Date Mahesh Hathaway MD [address] [facility] [place] [address] PCP - General Family Medicine 02/20/18
== END 2025-03-10 23:59 | disposition home or self-care (01) ==
LOC: RAD 09:59
PROVIDERS: PCP Family Medicine; Visit Provider Specialist
DX: M19.012 Primary osteoarthritis, left shoulder (principal); R20.0 Anesthesia of skin
CPT/HCPCS: 73030

== ENCOUNTER 2025-04-08 14:51 | Outpatient (CLI) | payer MEDICARE, SELFPAY ==
--- NOTE | 2025-04-08 15:00 | XR_ITS ---
FINAL REPORT CLINICAL HISTORY: Numbness tingling left forearm and hand, no recent injury; fall/stroke 2018 FINDINGS: No fracture is present. Alignment is normal. No prevertebral soft tissue swelling is seen. There is multilevel degenerative disc disease, most pronounced at C5-6 and C6-7. Mild endplate spurring is identified. IMPRESSION: Degenerative disc disease. Reviewed, Interpreted and Dictated by Ben Correa MD Transcribed by Carmen Holland Authenticated and [facility]
--- OUTSIDE RECORDS SUMMARY | 2025-04-08 15:28 | XMS_ITS | Clinical Summary ---
Author Organization [facility] Address [address] [place] [address] Care Team Providers Care Climate Change Analyst Name Role Phone Unavailable Primary Care Provider [...] (2 of 2 - PCV) 04/05/2023 04/05/2022 [id number] Vaccine (1 - 20 24-25 season) 2025 [...]
--- OUTSIDE RECORDS SUMMARY | 2025-04-08 15:28 | XMS_ITS | Clinical Summary ---
Author Organization [facility] Address [address] [place] [phone] Care Team Providers Care Banbury Machine Operator Name Role Phone Mag Garcia MD, Mahesh [...] fective 2017-Present) Name:Julius Michel Scooter Villanueva Member ID:[id number] Relation to Subscriber:Self Name:Julius Michel Subscriber ID:[id number] Payer ID:[id number] Group ID:Not on file Type:Not on file Address: [id number] Care Teams Banbury Machine Operator Relationship Specialty Start Date End Date Mahesh Hathaway MD [address] [facility] [place] [address] PCP - General Family Medicine 02/20/18
--- OUTSIDE RECORDS SUMMARY | 2025-04-08 15:28 | XMS_ITS | Clinical Summary ---
Author Organization [facility] Address [facility] [place] [address] Phone Care Team Providers Care Medical Office Professional Instructor Name Role Phone Unavailable Primary Care Provider [...] file Not on file Not on file Last Filed Vital Signs [...] PCV) 04/05/2023 04/05/2022 COVID-19 Vaccine (1 - 2024-2 6 season) 2025 Influenza Vaccine (#1) 2025 , 04/11/2023, 04/05/2022 Hepatitis B Vaccine Aged Out No longe r eligible based on patient's age to complete this topic Meningococcal B Vaccine Aged Out No l onger eligible based on patient's age to complete this topic Insurance [place] Advance Directives For more information, please contact: [phone] * Full Code (Latest Code Status on File) Date Activated Date Inactivated Comments 01/15/2018 8:32 PM 01/17/2018 9:22 PM
== END 2025-04-08 23:59 | disposition home or self-care (01) ==
LOC: RAD 14:53
PROVIDERS: PCP Family Medicine; Visit Provider Orthopaedic Surgery
DX: M50.322 Other cervical disc degeneration at C5-C6 level (principal); M50.323 Other cervical disc degeneration at C6-C7 level; G56.92 Unspecified mononeuropathy of left upper limb
CPT/HCPCS: 72040

== ENCOUNTER 2025-06-09 09:26 | Day surgery (SDC) | payer MEDICARE, SELFPAY ==
[2025-06-09 09:31] VITALS: BP 144/85; PULSE 61; O2SAT 95; BMI 33.2
[2025-06-09] MEDS: BUPIVACAINE 0.25% 10ML INJ 25 MG IJ (09:56)
[2025-06-09 09:57] VITALS: BP 165/42; PULSE 59; RESP 18; O2SAT 98
[2025-06-09] MEDS: LIDOCAINE 1% 5ML PF VIAL 5 ML (09:57)
[2025-06-09] MEDS: DEXAMETHASONE 10MG/ML 1ML VIAL 10 MG (09:57)
[2025-06-09 10:15] VITALS: BP 165/42; PULSE 59; RESP 18; O2SAT 98
[2025-06-09 10:20] VITALS: BP 156/68; PULSE 60; RESP 16; O2SAT 97
--- NOTE | 2025-07-14 12:01 | EXP.PAIN.PRO ---
Procedure Date: 06/09/25 Time: 10:00 Anesthesiologist:: Mitesh Cisneros CRNA Complications:: None Pre-procedure Diagnosis:: Left carpal tunnel syndrome Post-procedure Diagnosis:: Same Indications for Procedure:: Patient is a pleasant 75-year-old male who comes to our clinic today for a left carpal tunnel injection of cortisone and local anesthetic. Patient describes left hand pain as constant, dull, tingling sensation. He rates his pain 6/10. Procedure Details:: Details of the procedure explained to the patient. The patient taken procedure room placed in the sitting position. The area over the left ventral wrist was cleaned using chlorhexidine as a cleansing solution. Using a 25-gauge inch and a half needle the left carpal tunnel/median nerve area was infiltrated using 1% lidocaine and 10 mg of dexamethasone. This was injected after negative aspiration. Patient tolerated procedure without difficulty. There were no complications. Plan and Disposition:: Patient was discharged without incident.
== END 2025-06-09 10:29 | disposition home or self-care (01) ==
LOC: SC.PAINP 09:28
PROVIDERS: PCP Family Medicine; Visit Provider Nurse Anesthetist, Certified Registered
DX: G56.02 Carpal tunnel syndrome, left upper limb (principal); M19.90 Unspecified osteoarthritis, unspecified site; I25.10 Atherosclerotic heart disease of native coronary artery without angina pectoris; E78.5 Hyperlipidemia, unspecified; I10 Essential (primary) hypertension; I73.9 Peripheral vascular disease, unspecified; I42.9 Cardiomyopathy, unspecified; Z86.73 Personal history of transient ischemic attack (TIA), and cerebral infarction without residual deficits; Z72.0 Tobacco use
CPT/HCPCS: 20526; J0665; J1100; J2003